=== PATIENT | female | born 1975 | race Caucasian/White ===

== ENCOUNTER → 2016-06-16 | Outpatient (CLI) | payer OTHER | END | disposition home or self-care (01) | LOC: RAD.S 09:06 | DX: Z12.31 Encounter for screening mammogram for malignant neoplasm of breast (principal) ==

== ENCOUNTER 2016-07-08 21:59 | Emergency (ER) | payer OTHER, SELFPAY ==
--- NOTE | 2016-07-09 03:36 | ER ---
ADMIT: 07/08/2016 RM/LOC: ER [facility] MR#: [id number] [place], [place] [id number] ROEL MONTEIRO [address] [place] [address] Emergency Room Report SEX: F AGE: 40 : 1975 DATE: 07/08/2016 The patient is a 40-year-old female with severe migraine headache, associated nausea and vomiting after taking only 25 mg of sumatriptan and repeated in 2 hours as instructions imply. Exam remarkable for nontoxic, acutely ill, and uncomfortable-appearing female with photophobia and throbbing headache. Exam otherwise unremarkable. The patient was given a liter of fluid, Zofran, Toradol, magnesium, DHE with complete relief of headache. Prescription of sumatriptan 100 mg p.r.n. migraine, may repeat 1 hour, maximum 200 mg a day and 600 mg a week #12 with three refills. Advised to fluid push, caffeine in the morning, nonsteroidal of choice remainder of week and follow up with Linsey Walton as needed. Izaiah Malone MD/ lana JOB #: [id number] CC: Izaiah Malone MD, Attending Physician Linsey Walton, Family Physician Linsey Walton
== END 2016-07-08 23:20 | disposition home or self-care (01) ==
LOC: ER 21:59
DX: G43.909 Migraine, unspecified, not intractable, without status migrainosus (principal); E11.9 Type 2 diabetes mellitus without complications; Z79.899 Other long term (current) drug therapy